=== PATIENT | male | born 1970 | race Caucasian/White ===

== ENCOUNTER 2020-03-17 14:29 | Outpatient (CLI) | payer OTHER, SELFPAY ==
--- NOTE | ~2020-03-17 | XR_ITS ---
XR hand RT min 3V DATE: 03/17/2020 15:01 INDICATION: Right fourth digit pain at proximal interphalangeal joint area. No injury. TECHNIQUE: 3 views COMPARISON: None FINDINGS: No fracture or dislocation, periosteal reaction or bone destruction or significant joint sp fely narrowing, erosive change or chondrocalcinosis. IMPRESSION: No significant abnormality Reviewed, dictated and finalized at location A. IMPRESSION: No significant abnormality
== END 2020-03-17 14:30 | disposition home or self-care (01) ==
PROVIDERS: PCP Family Medicine; Visit Provider Nurse Practitioner
DX: M79.644 Pain in right finger(s) (principal)
CPT/HCPCS: 73130

== ENCOUNTER 2020-06-19 08:00 | Outpatient (RCR) | payer OTHER, SELFPAY ==
--- NOTE | 2020-05-14 16:07 | PTOPEVAL ---
PHYSICAL THERAPY EVALUATION AND PLAN OF CARE 05-14-2020 Thank you for referring Willie Zazueta to [facility] for the diagnosis of low back pain.? He is scheduled to be seen for therapy? 2 x/week for 4 weeks. Please review, sign, date and return this plan of care SHRADDHA. I agree with and certify that the following plan of care is medically necessary. Referring Physician Date Attending Provider: Bubba Magallanes MD *PT Outpatient Evaluation Document 05/14/20 15:09 TEE (Rec: 05/14/20 16:07 TEE [id number]) Outpatient Past Medical History Past Medical History Source of Past Medical History Patient Neurological History Hx Neurological Disorders No Significant History Cardiovascular History Hx Hypertension Yes: med control, working with dr to control meds Respiratory History Hx Respiratory Disorders No Significant History Gastrointestinal History Hx Gastrointestinal Disorders No Significant History Genitourinary History Hx Genitourinary Disorders No Significant History Musculoskeletal History Hx Back Pain Yes Hx Other Musculoskeletal Disorders Yes: R acetabular impingement surgery 2016;R knee pain Hematological History Hx Hematological Disorders No Significant History Endocrine History Hx Endocrine Disorders No Significant History HEENT History Hx HEENT Disorders No Significant History Integumentary History Hx Skin Disorders No Significant History Psychosocial History Hx Anxiety Yes: meds Hx Depression Yes Other History Hx Other Medical Conditions Yes: neck pain, C5-6 on MRI Evaluation Information Problem Diagnosis low back pain Onset Apr 15, 2020 Subjective Information chronic back pain about 6 Query Text:As Reported By Patient/ years, very debilitating pain Family - unable to function for about 3 weeks; pain varies and pain increases for 3 days to one week, then lets up' Diagnostic Tests X-Rays For This Problem No MRI For This Problem No Other Tests For This Problem No Previous Treatments Previous Treatments For This Problem previous PT for R hip after surgery Prior Level of Function Activity Level (Last 3 Months) Occupation remodeling, 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
--- NOTE | 2020-05-29 13:32 | PCPTNOTE ---
Patient called & cancelled scheduled appointment this date due to not being able to make it.
--- NOTE | 2020-06-09 15:24 | PCPTNOTE ---
pt called and canceled this AM reevaluation due to oversleeping; rescheduled to this afternoon, then called and canceled the afternoon appt due to not feeling well.
--- NOTE | 2020-06-19 08:54 | PTOPEVAL ---
PHYSICAL THERAPY DISCHARGE 06-19-2020 Refer to the clinical summary below for comparison of his status today to initial evaluation. Thank you for referring Willie Zazueta to [facility].? Please review, sign, date and return this discharge SHRADDHA. I agree with and certify that the following plan of care is medically necessary. 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 Self assessment with the Oswestry back score of 28% limitation in functional activity. Discussed with pt in depth about HEP, pain/activity cycle , importance of stretching, types of fitness activity--use low impact such as recumbant bicycle, water exercises, to decrease WB through spine and R hip; discussed anatomy and connection between back pain, R hip pain and previous surgery, knee pain; reinforced posture with walking, sitting, sleeping; He asked good questions and demonstrated a good understanding of above. Pain Assessment Timing of Pain Assessment Timing of Pain Assessment Assessment Pain Scale Pain Scale Used Numeric (1 - 10) Self Report Pain Assessment Right Knee(s) Reported Pain Level 0 Pain Frequency Chronic Lowest Pain Intensity 0 Greatest Pain Intensity 3 Other Pain Aggravating Factors night/sleeping time notice pain in knee Additional Pain Comments awaken from sleep due to pain 2-3x/night;feel knee pain not from back Bilateral Back Reported Pain Level 0 Radicular
== END 2020-06-19 14:27 | disposition home or self-care (01) ==
LOC: ANHPT 08:00
PROVIDERS: PCP Family Medicine; Visit Provider Family Medicine
DX: M54.5 Low back pain (principal); M41.9 Scoliosis, unspecified
CPT/HCPCS: 97014; 97110; 97161; G0283

== ENCOUNTER 2020-09-16 17:33 | Outpatient (CLI) | payer OTHER, SELFPAY | END 2020-09-16 17:34 | disposition home or self-care (01) | LOC: ANHCOVIDVC 17:33 | PROVIDERS: PCP Family Medicine | DX: Z23 Encounter for immunization (principal) | CPT/HCPCS: 0001A; 91300 ==

== ENCOUNTER 2020-10-07 18:04 | Outpatient (CLI) | payer OTHER, SELFPAY | END 2020-10-07 18:05 | disposition home or self-care (01) | LOC: ANHCOVIDVC 18:04 | PROVIDERS: PCP Family Medicine | DX: Z23 Encounter for immunization (principal) | CPT/HCPCS: 0002A; 91300 ==

== ENCOUNTER 2021-08-02 10:47 | Outpatient (CLI) | payer OTHER, SELFPAY ==
--- NOTE | ~2021-08-02 | XR_ITS ---
XR hand RT min 3V DATE: 08/02/2021 11:16 INDICATION: Right hand pain, fourth digit proximal interphalangeal joint TECHNIQUE: 3 views COMPARISON: 03/17/2020 right hand FINDINGS: No fracture, dislocation, periosteal reaction or bone destruction, erosive change or chondr ocalcinosis. IMPRESSION: Negative Reviewed, dictated and finalized at location A. RAL STORE MANAGER IMPRESSION: Negative
--- NOTE | ~2021-08-02 | XR_ITS ---
XR hip RT min 2V DATE: 08/02/2021 11:16 INDICATION: Right leg pain TECHNIQUE: AP and lateral views of right hip COMPARISON: 11/03/2013 right hip FINDINGS: No fracture, dislocation, avascular necrosis or bone destruction. Right hip joint space is well preserved. Nonaggressive lucent lesion of right femoral head noted on 11/04/1999 is not evident o n the current examination. IMPRESSION: Negative Reviewed, dictated and finalized at location A. IGERATION TECH IMPRESSION: Negative
--- NOTE | ~2021-08-02 | XR_ITS ---
XR knee RT min 4V DATE: 08/02/2021 11:16 INDICATION: Right knee pain. No injury. TECHNIQUE: [place], AP lateral views right lower leg COMPARISON: 11/03/2013 right lower leg FINDINGS: Chondrocalcinosis is noted at the medial and lateral and patellofemoral compartments. Joint spaces are preserved. No fracture or dislocation, joint effusion, periosteal reaction or bone d estruction. IMPRESSION: Chondrocalcinosis Reviewed, dictated and finalized at location A. RNET SOURCER IMPRESSION: Chondrocalcinosis
[2021-08-02 11:40] LABS: Basophils Percent Auto 0.7 % (0.2-1.2); Eosinophils Absolute Auto 0.1 K/mm3 (0-0.3); Eosinophils Percent Auto 1.5 % (0-4.4); Hematocrit 45.1 % (42.0-52.0); Hemoglobin 15.4 g/dL (14.0-18.0); Immature Granulocyte Absolute 0.01 K/mm3 (0.00-0.031); Immature Granulocyte Percent A 0.2 % (0-0.5); Lymphocytes Absolute Auto 2.19 K/mm3 (0.9-3.2); Lymphocytes Percent Auto 40.6 % (18.3-44.2); Mean Corpuscular HGB Conc 34.1 g/dl (32-36); Mean Corpuscular Hemoglobin 31.2 pg (26-34); Mean Corpuscular Volume 91.5 fl (80-100); Monocytes Absolute Auto 0.5 K/mm3 (0.1-0.6); Monocytes Percent Auto 9.3 % (2.6-8.5); Neutrophils Absolute Auto 2.6 K/mm3 (1.3-6.7); Neutrophils Percent Auto 47.7 % (45.5-73.1); Platelet Count Result 247 k/mm3 (150-375); Red Blood Count 4.93 M/mm3 (4.6-6.20); Red Cell Distribution Width 11.9 % (11.5-14.5); White Blood Count 5.4 K/mm3 (4.5-10.0)
[2021-08-02 11:50] LABS: Alanine Aminotransferase 20 U/L (4-50); Albumin Level 4.7 g/dL (3.5-5.1); Alkaline Phosphatase 63 U/L (38-126); Anion Gap 9 mmol/L (8-16); Aspartate Amino Transferase 25 U/L (17-59); Bilirubin,Total 0.8 mg/dL (0.2-1.3); Blood Urea Nitrogen 10 mg/dL (9-20); Calcium 9.5 mg/dL (8.4-10.2); Carbon Dioxide 28 mmol/L (22-30); Chloride 101 mmol/L (98-107); Cholesterol 154 mg/dL (0-200); Estimated Glomerular Filt Rate > 60; Glucose 95 mg/dL (65-110); HDL Direct 35 mg/dL; Potassium 4.2 mmol/L (3.4-5.0); Sodium 138 mmol/L (137-145); Triglycerides 144 mg/dL (<150); Uric Acid 3.2 mg/dL (3.5-8.5)
[2021-08-02 11:52] LABS: Rheumatoid Factor < 8.6 IU/ML (<12)
[2021-08-02 12:00] LABS: LDL Cholesterol Direct 85 mg/dL
[2021-08-02 12:20] LABS: Prostate Specific Antigen 1.8 ng/mL (< OR = 4.0); Total Triiodothyronine (T3) 1.19 NG/ML (0.97-1.69)
[2021-08-02 12:33] LABS: Free T4 Free Thyroxine 0.75 ng/mL (0.78-2.19); Vitamin D 25 Hydroxy 55.9 ng/mL
[2021-08-02 13:11] LABS: Erythrocyte Sedimentation Rate 1 mm/hr (0-20)
[2021-08-04 12:06] LABS: Scleroderma 70 Antibody <1.0
[2021-08-04 20:00] LABS: Anti Centromere B Antibody <1.0
== END 2021-08-02 10:48 | disposition home or self-care (01) ==
PROVIDERS: PCP Family Medicine; Visit Provider Family Medicine
DX: Z00.00 Encounter for general adult medical examination without abnormal findings (principal); M25.50 Pain in unspecified joint; M11.261 Other chondrocalcinosis, right knee; I10 Essential (primary) hypertension; E78.2 Mixed hyperlipidemia; E55.9 Vitamin D deficiency, unspecified; Z13.0 Encounter for screening for diseases of the blood and blood-forming organs and certain disorders involving the immune mechanism; Z13.6 Encounter for screening for cardiovascular disorders; Z13.220 Encounter for screening for lipoid disorders; Z13.29 Encounter for screening for other suspected endocrine disorder; Z12.5 Encounter for screening for malignant neoplasm of prostate
CPT/HCPCS: 36415; 73130; 73502; 73564; 80053; 80061; 82306; 84153; 84439; 84443; 84480; 84550; 85025; 85652; 86235; 86430; G0103

== ENCOUNTER 2021-11-13 10:48 | Outpatient (CLI) | payer OTHER, SELFPAY ==
--- NOTE | ~2021-11-13 | MR_ITS ---
EXAMINATION: MR hand RT wo con DATE: 11/13/2021 12:14 INDICATION: Right hand pain centered at the fourth proximal interphalangeal joint. TECHNIQUE: Magnetic resonance imaging (MRI) of the right hand was performed without intravenous contr ast to include the metacarpals and digits. Sequences included sagittal, coronal, and T1-weighted FSE and T2-weighted FS FSE. COMPARISON: None FINDINGS: Bone alignment is normal. Normal marrow signal throughout with no fracture, reactive edema or patholo gic marrow replacing process. Joint spaces are normal. No erosions to suggest an inflammatory arthrit is. Physiologic amount fluid in the joint spaces. There is mild thickening and mild increased signal of the collateral ligament complex at the radial side of the second and third metacarpophalangeal melisa nts, at the radial collateral ligament complex of the second proximal interphalangeal joint and at magno th the radial and ulnar collateral ligament complexes at the third and fourth proximal interphalangea l joints. The remaining collateral ligament complex at the metacarpophalangeal and interphalangeal jeana ints are normal. The flexor and extensor tendons are normal. Intrinsic musculature of the hand is nor mal. IMPRESSION: 1. Mild thickening and mild increased signal of the collateral ligament complexes at the second and t hird metacarpophalangeal and second-fourth proximal interphalangeal joints. This could represent scar ring related to chronic sprains although given the multiplicity would also include sequela of inflamm atory enthesitis such as psoriatic arthritis or crystalline induced enthesitis. Reviewed, dictated and finalized at location A. IMPRESSION: 1. Mild thickening and mild increased signal of the collateral ligament complex es at the second and third metacarpophalangeal and second-fourth proximal inter phalangeal joints. This could represent scarring related to chronic sprains [place] given the multiplicity would also include sequela of inflammatory enthesi tis such as psoriatic arthritis or crystalline induced enthesitis.
== END 2021-11-13 10:49 ==
PROVIDERS: PCP Family Medicine; Visit Provider Orthopaedic Surgery Hand Surgery
DX: M79.641 Pain in right hand (principal)
CPT/HCPCS: 73218

== ENCOUNTER 2022-06-24 15:49 | Outpatient (CLI) | payer OTHER, SELFPAY ==
--- NOTE | 2022-06-28 16:17 | WPDHOLTEREM ---
Holter/Event Monitor Holter/Event Monitor Date of procedure: 06/24/22 Holter/Event Procedure: 48 Hr Holter Monitor Indications: Palpitations Conclusion: 1. 48 hour holter monitor on 06/24/22. 2. Predominant rhythm is sinus rhythm, HR range 45-194 bpm; average HR 75 bpm. 3. There are 481 premature supraventricular complexes, 65 supraventricular couplets and 2 supraventricular triplets. There are 20 episodes of atrial fibrillation with a burden of 0.9% and fastest at 194 bpm and longest lasting 1 minute. 4. There are 57 premature ventricular complexes and 4 ventricular couplets. No ventricular tachycardia. 5. No sinoatrial or atrioventricular blocks. No significant pauses greater than 2 seconds. 6. Patient reports symptom of increased heart rate which demonstrate sinus rhythm at 75 bpm.
== END 2022-06-24 15:50 | disposition home or self-care (01) ==
LOC: ANHCARD 15:49
PROVIDERS: PCP Family Medicine; Visit Provider Family Medicine
DX: R00.2 Palpitations (principal)
CPT/HCPCS: 93225; 93226

== ENCOUNTER 2022-08-30 08:40 | Outpatient (CLI) | payer OTHER, MEDICAID, SELFPAY ==
--- NOTE | 2022-08-30 08:45 | ECHO_ITS ---
Patient Info Name: Willie Zazueta Age: 52 years : 1970 Gender: Male Ht: 74 in Wt: 205 lbs BSA: 2.21 m2 HR: 69 bpm BP: 136 / 97 mmHg Technical Quality: Good Exam Date: 08/30/2022 8:53 AM Exam Location: [facility] Patient Status: Outpatient Admit Date: 08/30/2022 Staff Ordering Physician: Deni Chacon DO Side Puller: Ebony Luque RDCS Attending Provider: Deni Chacon DO Referring Physician: Oswaldo GÓMEZ; Exam Type: CA echo doppler color flow Study Info Indications I48.0 - Paroxysmal atrial fibrillation Complete two-dimensional, color flow and Doppler transthoracic echocardiogram is performed. Summary 1. Complete two-dimensional, color flow and Doppler transthoracic echocardiogram is performed. 2. Left ventricular chamber dimension is normal. 3. Left ventricular systolic function is normal, estimated at 60-65%. 4. The left ventricular diastolic function is grade I diastolic dysfunction. 5. E/e' 5 is not elevated. 6. Global longitudinal strain is abnormal at -15.3%. 7. No pulmonary hypertension, estimated pulmonary arterial systolic pressure is 30 mmHg. Left Ventricle E/e' 5 is not elevated. Global longitudinal strain is abnormal at -15.3%. Left ventricular chamber dimension is normal. Left ventricular systolic function is normal, estimated at 60-65%. The left ventricular diastolic function is grade I diastolic dysfunction. Right Ventricle Right ventricular chamber dimension is normal. Right ventricular systolic function is normal. Left Atria Left atrial chamber dimension is normal. Right Atria Right atrial chamber dimension is normal. Aortic Valve The aortic valve is trileaflet. There is no aortic valve stenosis. There is no aortic valve regurgitation. Pulmonic Valve There is no pulmonic regurgitation. Mitral Valve There is no mitral valve stenosis. There is no mitral valve regurgitation. Tricuspid Valve There is no tricuspid valve regurgitation. No pulmonary hypertension, estimated pulmonary arterial systolic pressure is 30 mmHg. Pericardium/Pleural There is no pericardial effusion. Inferior Vena Cava Normal inferior vena cava with >50% collapse upon inspiration consistent with normal right atrial pressure, 5 mmHg. Aorta The aortic root size at the sinus of Valsalva is normal. Left Ventricular Outflow Tract Name Value Normal LVOT 2D LVOT Diameter 2.3 cm LVOT Doppler LVOT Peak Gradient 2 mmHg LVOT Mean Gradient 1 mmHg LVOT VTI 14 cm LVOT VTI/AV VTI Ratio 0.9 LVOT Stroke Volume 57 ml LVOT CO 4.2 l/min LVOT CI 1.9 l/min/m2 Pulmonic Valve Name Value Normal RVOT Doppler RVOT Peak Gradi
== END 2022-08-30 08:41 | disposition home or self-care (01) ==
LOC: ANHCARD 08:43
PROVIDERS: PCP Family Medicine; Visit Provider Internal Medicine Cardiovascular Disease
DX: I48.0 Paroxysmal atrial fibrillation (principal); I50.30 Unspecified diastolic (congestive) heart failure
CPT/HCPCS: 93306

== ENCOUNTER 2025-05-26 15:38 | Outpatient (CLI) | payer OTHER, SELFPAY ==
--- NOTE | ~2025-05-26 | XR_ITS ---
EXAMINATION: XR shoulder RT min 2V, 05/26/2025 16:55 MODELING MANAGER HISTORY: Pain in right shoulder, CHRONIC INJURY COMPARISON: No comparisons available. Findings: No acute fracture or malalignment. No significant degenerative changes. Soft tissues unremarkable. Impression: No acute fracture or malalignment. Reviewed, dictated and finalized at location P. LING MANAGER Impression: No acute fracture or malalignment.
--- OUTSIDE RECORDS SUMMARY | 2025-05-26 15:43 | XMS_ITS | Clinical Summary ---
Author Organization [facility] Address [facility] [place] [address] Care Team Providers Care Contracts Advisor Name Role Phone Unavailable Primary Care Provider Unavailabl e Social History Tobacco Use Types Packs/Day Years Used Date Smoking Tobacco: Never Assessed Sex and Gender Information Value Date Recorded Sex Assigned at Not on file Legal Sex Male 4:12 PM CDT Gender Identity Not on file Sexual Orientation Not on file Last Filed Vital Signs Vital Sign Reading Time Taken Comments Blood Pressure 118/70 04/11/2012 10:23 AM CDT Pulse 78 04/11/2012 10:23 AM CDT Temperature - - Respiratory Rate - - Oxygen Saturation - - Inhaled Oxygen Concentration - - Weight 78 kg (172 lb) 04/11/2012 10:23 AM CDT Height 188 cm (6' 2) 04/11/2012 10:23 AM CDT Body Mass Index 22.08 04/11/2012 10:23 AM CDT Plan of Treatment Health Maintenance Due Date Last Done Comments Colorectal Cancer Screening Colonoscopy (10 Years) 1971 Annual Physical 1974 Hepatitis C 1989 DTaP, Tdap and Td Vaccines ( 1 - Tdap) 1990 Hepatitis B Vaccines (1 of 3 - 19+ 3-dose series) 1990 Pneumococcal Vaccine: 50+ Ye ars (1 of 1 - PCV) 2021 Zoster Vaccines (1 of 2) 2021 COVID-19 Vaccine ( - 2024-2 6 season) 2025 Influenza Adult (#1) 2025 Hepatitis A Vaccines Aged Out No long er eligible based on patient's age to complete this topic Meningococcal B Vaccine Aged Out No l onger eligible based on patient's age to complete this topic Meningococcal Vaccine Aged Out No kellen cara eligible based on patient's age to complete this topic RSV Immunizations Under 20 Months Aged Out No longer eligible based on patient's age to complete this topic
--- OUTSIDE RECORDS SUMMARY | 2025-05-26 15:43 | XMS_ITS | Clinical Summary ---
Author Organization [facility] Address [address] [place] [address] Care Team Providers Care Diagnostic Cardiac Sonographer Name Role Phone Bubba Magallanes MD Primary Care Provider Source Comments [facility],non-owned Affiliates and Associated Physician Practices is amultiple site organization consisting of ambulatory clinics and hospital sitesin [place], [place], [place] and [place]. This disclosure is being madepursuant to the Care Everywhere program and may not contain all information available regarding this patient. Last updated 18.[facility] Allergies No known active allergies Medications * Be aware that medications may not be up to date on this document. Alwaysverify current medications with the patient. cyclobenzaprine (FLEXERIL) 10 MG tablet 07/03/2018 Active escitalopram (LEXAPRO) 10 MG tablet 06/27/2018 Active Family History Medical History Relation Name Comments Asthma Neg Hx CVA Neg Hx Cancer - Breast Neg Hx Cancer - Other Neg Hx Cancer - Skin, Melanoma Neg Hx Cancer - Skin, Non Melanoma Neg Hx Eczema Neg Hx Hemophilia Neg Hx Psoriasis Neg Hx Social History Tobacco Use Types Packs/Day Years Used Date Smoking Tobacco: Every Day Smokeless Tobacco: Never Sex and Gender Information Value Date Recorded Sex Assigned at Not on file Legal Sex Male 2:34 PM CDT Gender Identity Not on file Sexual Orientation Not on file Plan of Treatment Health Maintenance Due Date Last Done Comments COLOGUARD (AGES 45-75) - COL ON CA SCREENING 1970 COLON MONITORING 1971 COLONOSCOPY - COLON CA SCREENING 1971 CT COLONOGRAPHY - COLON CA SCREENING 1971 Colorectal Cancer Screening 1971 FIT - COLON CA SCREENING 1971 FLEX SIG - COLON CA SCREENING 1971 LIPID TESTING 1971 HIV SCREENING 1986 HEPATITIS C SCREENING 08/15/1989 DTAP/TDAP/TD VACCINES (1 - Tdap) 1990 HEPATITIS B VACCINE (1 of 3 - 19+ 3-dose series) 1990 PNEUMOCOCCAL VACCINE 50+ (1 of 2 - PCV) 1990 ZOSTER VACCINE (1 of 2) 2021 DEPRESSION SCREENING 07/17/2024 COVID-19 VACCINE (1 - 2023-2 5 season) 2025 INFLUENZA VACCINE (#1) 2025 HIB VACCINE Aged Out No longer eligi ble based on patient's age to complete this topic HPV VACCINE Aged Out No longer eligi ble based on patient's age to complete this topic MENINGOCOCCAL (Group B) VACC INE SHARED DECISION-MAKING Aged Out No longer eligibl e based on patient's age to complete this topic MENINGOCOCCAL GROUPS A/C/Y/W VACCINE Aged Out No longer eligible b ased on patient's age to complete this topic Insurance [facility] Care Teams Diagnostic Cardiac Sonographer Relationship Specialty Start Date End Date Bubba Magallanes MD [address] [place] [address] PCP - General 07/19/18
--- OUTSIDE RECORDS SUMMARY | 2025-05-26 15:43 | XMS_ITS | Encounter Summary ---
Author Organization [facility] Address [facility] [place] [address] Care Team Providers Care Coil Winding Supervisor Name Role Phone Unavailable Primary Care Provider Unavailabl e Encounter Details Date Type Department Care Team (Latest Contact Info) Description 05/22/2018 Abstract [facility] , Roseann Delgado MD Social History Tobacco Use Types Packs/Day Years Used Date Smoking Tobacco: Never Assessed Sex and Gender Information Value Date Recorded Sex Assigned at Not on file Legal Sex Male 4:12 PM CDT Gender Identity Not on file Sexual Orientation Not on file documented as of this encounter Plan of Treatment Not on file documented as of this encounter Visit Diagnoses Not on filedocumented in this encounter
== END 2025-05-26 15:39 | disposition home or self-care (01) ==
PROVIDERS: PCP Family Medicine; Visit Provider Family Medicine
DX: M25.511 Pain in right shoulder (principal)
CPT/HCPCS: 73030